=== PATIENT | female | born 1985 | race Caucasian/White ===

== ENCOUNTER 2019-03-26 21:19 | Observation (INO) | payer OTHER, MEDICAID, SELFPAY ==
--- NOTE | 2019-03-26 21:27 | ED.NAVMDI ---
HPI - Nausea/Vomiting/Diarrhea General Chief complaint: Nausea/Vomiting/Diarrhea Stated complaint: vomiting, unable to hold anything down Time Seen by Provider: 03/26/19 21:20 Source: patient and family Mode of arrival: Ambulatory Limitations: no limitations History of Present Illness HPI Narrative: 34-year-old female nonsmoker with noncontributory medical history presents with a chief complaint of severe lower and right lower quadrant pain worsening over the course of the day and now persistent nausea and vomiting. She has become dizzy, weak and lightheaded and complains of a subjective fever. Her pain is worse with motion and improves with rest. Her last menstrual cycle was 3 weeks ago and normal. She denies any dysuria, frequency or urgency. She denies vaginal bleeding or discharge. Her last bowel movement was yesterday and normal. MD complaint: nausea, vomiting and abdominal pain Onset (ago): hour(s) Description of Vomiting: food contents Description of Diarrhea: none Associated Abdominal Pain: Yes Location of pain: RLQ Severity: moderate Quality: cramping and aching Pain Consistency: constant Relieving factors: rest Exacerbating factors: movement Related Data Home Medications Medication Instructions Recorded Confirmed fexofenadine 60 mg tablet 60 mg PO BID 03/14/18 03/14/18 Allergies Allergy/AdvReac Type Severity Reaction Status Date / Time iron Allergy Anaphylaxis Verified 03/27/19 00:00 Review of Systems Constitutional Constitutional: Denies chills, Denies fatigue, Denies fever(s), Denies frequent falls, Denies lethargy and Denies weakness Eyes Eyes: Denies change in vision, Denies eye discharge, Denies irritation and Denies loss of vision ENT Ears, Nose, Mouth, and Throat: Denies change in voice, Denies dizziness, Denies neck pain, Denies sore throat and Denies throat swelling Cardiovascular Cardiovascular: Denies chest pain, Denies irregular heart rhythm, Denies lightheadedness, Denies palpitations, Denies dyspnea, Denies dyspnea on exertion and Denies orthopnea Respiratory Respiratory: Denies cough, Denies dyspnea, Denies dyspnea on exertion and Denies wheezing Gastrointestinal Gastrointestinal: Reports abdominal pain, Denies change in bowel habits, Denies diarrhea, Denies nausea and Reports vomiting Genitourinary Genitourinary: Denies hematuria, Denies flank pain, Denies urinary incontinence and Denies urinary urgency Musculoskeletal Musculoskeletal: Denies back pain, Denies muscle weakness, Denies neck pain, Denies numbness and Denies tingling Integumentary/Breasts Skin/Breast: Denies pruritus, Denies erythema, Denies rash and Denies wounds Neurologic Neurologic: Denies behavioral changes, Denies confusion, Denies dizziness, Denies frequent falls, Denies loss of vision, Denies numbness, Denies tingling and Denies weakness Psychiatric Psychiatric: Denies anxiety, Denies behavioral changes, Denies confusion, Denies depression, Denies homicidal ideation and Denies suicidal ideation Endocrine Endocrine: Denies fatigue, Denies flushing and Denies palpitations Hematologic/Lymphatic Hematologic/Lymphatic: Denies easy bruising Allergic/Immunologic Allergic/Immunologic: Denies urticaria, Denies throat swelling and Denies wheezing Patient History Social History Smoking Status: Current some day smoker Exam Narrative Exam Narrative: GENERAL: [] 34 year old patient appears stated age. Well-nourished, well-developed patient, in mild distress., holding emesis bag HEAD: Atraumatic. Normocephalic. EYES: Pupils equal round and reactive. Extraocular motions intact. No scleral icterus. No injection or drainage. ENT: Nose without bleeding, purulent drainage. Throat without erythema, tonsillar hypertrophy or exudate. Airway patent. NECK: Trachea midline. Non tender CARDIOVASCULAR: Regular rate and rhythm without murmurs, gallops, or rubs. RESPIRATORY: Clear to auscultation. Breath sounds equal bilaterally. No wheezes, rales, or rhonchi. GASTROINTESTINAL: Abdomen soft, tender in the right lower quadrant with localized peritonitis, nondistended. EXTREMITIES: No edema or joint tenderness. BACK: Nontender without deformity or crepitance. No flank tenderness. NEURO: AOx3. SKIN: No rash or erythema of visible areas Initial Vital Signs Initial Vital Signs: Vital Signs Temperature 98.5 F 03/26/19 21:29 Pulse Rate 122 H 03/26/19 21:29 Respiratory Rate 03/26/19 21:29 Blood Pressure 123/61 03/26/19 21:29 Course Orders Ordered: ED Orders 03/26/19 21:30 Complete Blood Count AUTO DIFF Stat Comprehensive Metabolic Panel Stat 03/26/19 22:07 CT abdomen pelvis w con Stat Discontinued Medications Sodium Chloride (Normal Saline 0.9%) 1,000 mls @ 1,000 mls/hr IV BOLUS ONE Stop: 03/26/19 22:26 Last Infusion: 03/26/19 22:50 Dose: 0 mls/hr Documented by: Admin: 03/26/19 21:45 Dose: 1,000 mls/hr Documented by: MAX Ondansetron HCl (Zofran) 4 mg IV NOW ONE Stop: 03/26/19 21:28 Last Admin: 03/26/19 21:45 Dose: 4 mg Documented by: MAX Consultations Consultation #1: Dr. Short happy to accept Vital Signs Vital signs: Vital Signs - 8 hr 03/26/19 21:29 Temperature 98.5 F Pulse Rate 122 H Respiratory Rate 19 Blood Pressure 123/61 MDM - Nausea/Vomiting/Diarrhea Lab Data Result diagrams: 03/26/19 21:30 03/26/19 21:30 Labs: Lab Results 03/26/19 03/26/19 Range/Units 21:30 21:30 WBC 17.5 H (4.5-11.0) X10^3/uL RBC 4.71 (4.0-5.2) X10^6/uL Hgb 12.5 (12.0-16.0) g/dL Hct 37.9 (36-46) % MCV 80.5 (80-100) fL MCH 26.4 (26-34) PG MCHC 32.8 (30-36) % RDW 15.2 H (11.6-14.8) % Plt Count 555 H (150-400) X10^3/uL Neut % (Auto) 78.8 H (50-75) % Lymph % (Auto) 13.2 L (25-40) % [place] % (Auto) 7.4 (3-14) % Eos % (Auto) 0.3 L (2-4) % Baso % (Auto) 0.3 (0-2) % Neut # (Auto) 57548 H (5069-4080) /uL Lymph # (Auto) 2300 (2185-0466) /uL [place] # (Auto) 1300 H (0-900) /uL Eos # (Auto) 100 (0-450) /uL Baso # (Auto) 0 (0-100) /uL Sodium 135 L (137-145) mmol/L Potassium 3.7 (3.4-5.1) mmol/L Chloride 100 (98-107) mmol/L Carbon Dioxide 24 (22-32) mmol/L BUN 13 (7-17) mg/dL Creatinine 0.80 (0.52-1.04) mg/dL Estimated GFR > 60.0 (>60) mL/min BUN/Creatinine Ratio 16.3 (6-22) Glucose 125 H (70-100) mg/dL Calcium 9.0 (8.4-10.2) mg/dL Total Bilirubin 0.6 (0.2-1.3) mg/dL AST 24 (14-36) IU/L ALT 15 (<35) IU/L Alkaline Phosphatase 87 (38-126) U/L Total Protein 8.3 H (6.3-8.2) g/dL Albumin 4.8 (3.5-5.0) g/dL Globulin 3.5 (1.7-4.1) g/dL Albumin/Globulin Ratio 1.4 (1.0-2.8) Point of Care Testing Test Results Negative Urine Dip Bedside Urine Glucose Negative Bedside Urine Bilirubin - Negative Bedside Urine Ketone - Negative Urine Specific [place] 1.005 Bedside Urine Occult Blood - Negative Bedside Urine pH 6.0 Bedside Urine Protein - Negative Bedside Urine Urobilinogen - Negative Bedside Urine Nitrite - Negative Bedside Urine Leukocytes - Negative Esterase Imaging Data CT scan - abdomen: Attestation: I personally reviewed and interpreted this imaging study as follows: Radiologist's impression: appendicitis, not perforated Discharge Plan Departure Patient Disposition: Admitted As Inpatient Clinical Impression: Acute appendicitis Qualifiers: Acute appendicitis type: with localized peritonitis Appendicitis gangrene presence: without gangrene Appendicitis perforation presence: without perforation Appendicitis abscess presence: without abscess Qualified Code(s): K35.30 - Acute appendicitis with localized peritonitis, without perforation or gangrene Admit Date/Time: 03/26/19 23:22 Admit Provider: Carlito Short
[2019-03-26 21:29] VITALS: BP 123/61; PULSE 122; RESP 19; TEMP 36.9; BMI 26.9
[2019-03-26 21:38] LABS: Add Manual Diff / Slide Review NO; Basophils Absolute Auto 0 /uL (0-100); Basophils Percent Auto 0.3 % (0-2); Eosinophils Absolute Auto 100 /uL (0-450); Eosinophils Percent Auto 0.3 % (2-4); Hematocrit 37.9 % (36-46); Hemoglobin 12.5 g/dL (12.0-16.0); Lymphocytes Absolute Auto 2300 /uL (1100-4500); Lymphocytes Percent Auto 13.2 % (25-40); Mean Corpuscular HGB Conc 32.8 % (30-36); Mean Corpuscular Hemoglobin 26.4 PG (26-34); Mean Corpuscular Volume 80.5 fL (80-100); Monocytes Absolute Auto 1300 /uL (0-900); Monocytes Percent Auto 7.4 % (3-14); Neutrophils Absolute Auto 13800 /uL (1500-7000); Neutrophils Percent Auto 78.8 % (50-75); Platelet Count 555 X10^3/uL (150-400); Red Blood Cell Count 4.71 X10^6/uL (4.0-5.2); Red Cell Distribution Width 15.2 % (11.6-14.8); White Blood Cell Count 17.5 X10^3/uL (4.5-11.0)
[2019-03-26] MEDS: SODIUM CHLORIDE 0.9% 1,000 ML 1000 ML IV (21:45)
[2019-03-26] MEDS: ONDANSETRON 4 MG/2 ML INJ IV (21:45)
[2019-03-26 21:50] LABS: Alanine Aminotransferase 15 IU/L (<35); Albumin 4.8 g/dL (3.5-5.0); Albumin Globulin Ratio 1.4 (1.0-2.8); Alkaline Phosphatase 87 U/L (38-126); Aspartate Aminotransferase 24 IU/L (14-36); BUN Creatinine Ratio 16.3 (6-22); Bilirubin Total 0.6 mg/dL (0.2-1.3); Blood Urea Nitrogen 13 mg/dL (7-17); Carbon Dioxide 24 mmol/L (22-32); Chloride 100 mmol/L (98-107); Estimated Glomerular Filt Rate > 60.0 mL/min (>60); Globulin 3.5 g/dL (1.7-4.1); Glucose 125 mg/dL (70-100); HEMOLYSIS < 15 (0-50); Potassium 3.7 mmol/L (3.4-5.1); Sodium 135 mmol/L (137-145); Total Protein 8.3 g/dL (6.3-8.2)
--- NOTE | 2019-03-26 22:07 | DI.CT.S_ITS ---
PROCEDURE: CT ABDOMEN PELVIS W CON INDICATIONS: severe abdominal pain, N/V, leukocytosis TECHNIQUE: After the administration of intravenous contrast, 5 mm thick sections acquired from the diaphragm to the symphysis. 5 mm coronal and sagittal reformats were acquired. For radiation dose reduction, the following was used: automated exposure control, adjustment of mA and/or kV according to patient size. COMPARISON: None. FINDINGS: Image quality: Excellent. ABDOMEN: Lung bases: Lung bases are clear. Heart size is normal. Solid organs: Liver is normal in size and enhancement. Gallbladder is normal. Biliary system is non dilated. Pancreas enhances normally. Spleen is normal in size and enhancement. No adrenal nodules. Kidneys demonstrate normal size and enhancement, without hydronephrosis. Peritoneum and bowel: Appendix is enlarged measuring 10 mm in diameter. There is increased enhancement of the appendiceal wall and periappendiceal stranding. The findings are consistent with acute appendicitis. A small amount of free fluid is present. No rim-enhancing fluid collections to suggest abscess.. Nodes and vessels: No retroperitoneal or mesenteric adenopathy by size criteria. Aorta and inferior vena cava are normal in size. Miscellaneous: No ventral hernias. PELVIS: Genitourinary: Bladder wall thickness is normal. Uterus is normal. There is a 1.7 cm cyst in the right ovary demonstrating peripheral enhancement. Miscellaneous: No inguinal hernias or adenopathy. Bones: No suspicious bony lesions. No vertebral body compression fractures. IMPRESSION: 1. Acute appendicitis. There is a small amount of free fluid. No fluid collections to suggest appendiceal abscess. 2. A 1.7 cm cyst in the right ovary demonstrating peripheral enhancement, probably a corpus luteal cyst. No significant discrepancy with the pre certification specialist radiology preliminary report. Dictated by: Matt Velasquez M.D. on 03/27/2019 at 7:51 Approved by: Matt Velasquez M.D. on 03/27/2019 at 7:59
[2019-03-27] VITALS (18 sets, daily range): BP systolic 100–135; BP diastolic 57–87; PULSE 80–119; RESP 12–22; TEMP 36.3–37.7; O2SAT 96–100; BMI 25.1
--- NOTE | 2019-03-27 | PATH_ITS ---
[facility] Accession Number: [id number] . 01 Material submitted: . appendix - APPENDIX . 02 Diagnosis: Appendix, Appendectomy: Acute appendicitis with serositis. No evidence of neoplasm. MRV 03/30/2019 1402 Local . 02 Electronically signed: . Twan Pollock MD, PhD, Pathologist NPI- [id number] . 01 Gross description: . Specimen is received in a formalin-filled container, labeled appendix, and consists of a 7.4 x 1.5 x 1.3 cm pink-ventura smooth to ragged intact appendix with a moderate amount of adherent mesoappendix. The mesoappendix and appendiceal margins are inked orange. Sectioning reveals a moderate amount of brown-tinged fecal material; however, a fecalith is not grossly identified. The mucosa is diffusely hemorrhagic and focally thickened up to 0.4 cm. The luminal diameter ranges from 0.1 cm up to 0.5 cm. [employer] sections are submitted as follows: A1 - appendix including orange-inked appendiceal margin en face and areas of hemorrhagic mucosa; A2 - distal appendiceal tip, bisected, entirely submitted. ([id number]) /MRV 03/29/2019 0308 Local . 02 Pathologist provided ICD-10: K35.80 . 02 CPT . 332485 Performed at: 01 [facility] [address] [place] [address], [place], [place] [id number] MD Marvin Arellano MD Phone: [phone] Performed at: 02 [facility] [address] [place], [place] [id number] MD Iris Kidd MD Phone: [phone]
[2019-03-27] MEDS: SODIUM CHLORIDE 0.9% 1,000 ML 1000 ML IV (00:22)
[2019-03-27] MEDS: PIPERACILLIN-TAZO 3.375 GM/50 ML FROZ.PIGGY IV ×3 (01:14→13:20)
[2019-03-27] MEDS: SODIUM CHLORIDE 0.9% 1,000 ML 125 ML IV (01:19)
--- NOTE | 2019-03-27 01:26 | PC.NURSE ---
Admitted to room 228 diagnosed with acute appendicitis, denies any nausea upon admit. Abdominal pain is tolerable at this time 07/27. NS bolus completed now, NS @ 125 cc/hr started & Zosyn antibiotic also started. Oriented to her room & instructed to call for assistance if she needed to get up OOB to the BR. Showed how to use her call light, TV & bed controls & call light with in reached. Will cont. POC & monitor.
--- NOTE | 2019-03-27 08:14 | PM.HP.1 ---
History of Present Illness History of Present Illness Chief complaint: vomiting, unable to hold anything down Patient History Family & Social History Social History: household members significant other,children Prior Living Arrangements House Safety & Behavioral: Feels Safe in Current Yes Environment Been Physically Hurt or No Threatened By a Person Suicidal Ideation Description None Suicide Plan Description No Plan Tobacco & Substance use: Tobacco type cannabis/marijuana Smoking Status Current some day smoker alcohol intake former Substance Use Type marijuana Meds Home Medications and Allergies Home Medications Medication Instructions Recorded Confirmed Type fexofenadine 60 mg tablet 60 mg PO BID PRN 03/14/18 03/27/19 History Allergies Allergy/AdvReac Type Severity Reaction Status Date / Time iron Allergy Anaphylaxis Verified 03/27/19 00:00 Review of Systems Review of Systems ROS Unobtainable: All systems reviewed & are unremarkable except as noted in HPI and below Exam Vital Signs (past 8 hours): - 03/27/19 00:18 03/27/19 00:30 03/27/19 05:02 Temperature 99.6 F 99.0 F Pulse Rate 109 H 80 101 H Respiratory Rate 14 16 16 Blood Pressure 102/61 100/62 Blood Pressure [Left Arm] 106/70 Pulse Oximetry 99 99 99 Oxygen Delivery Method Room Air Narrative Exam Narrative: Patient resting in bed with moderate right lower quadrant abdominal pain Ears nose and throat are unremarkable Lungs are clear Heart regular rhythm no murmur Abdomen is soft and upper quadrants with point tenderness in the right lower quadrant positive Rovsing sign guarding in the right lower quadrant no masses Extremities are normal neurologic normal Objective Labs Result Diagrams: 03/26/19 21:30 03/26/19 21:30 Labs: Laboratory Results - last 24 hr 03/26/19 03/26/19 21:30 21:30 WBC 17.5 H RBC 4.71 Hgb 12.5 Hct 37.9 MCV 80.5 MCH 26.4 MCHC 32.8 RDW 15.2 H Plt Count 555 H Neut % (Auto) 78.8 H Lymph % (Auto) 13.2 L [place] % (Auto) 7.4 Eos % (Auto) 0.3 L Baso % (Auto) 0.3 Neut # (Auto) 05441 H Lymph # (Auto) 2300 [place] # (Auto) 1300 H Eos # (Auto) 100 Baso # (Auto) 0 Sodium 135 L Potassium 3.7 Chloride 100 Carbon Dioxide 24 BUN 13 Creatinine 0.80 Estimated GFR > 60.0 BUN/Creatinine Ratio 16.3 Glucose 125 H Calcium 9.0 Total Bilirubin 0.6 AST 24 ALT 15 Alkaline Phosphatase 87 Total Protein 8.3 H Albumin 4.8 Globulin 3.5 Albumin/Globulin Ratio 1.4 Assessment & Plan Assessment & Plan narrative: Patient is CT scan in the ER showing uncomplicated acute [place]icitis [place] [id number] she has received several doses of intravenous Zosyn she will have an open appendectomy this afternoon patient understands and agrees to the plan and has no unanswered questions Quality VTE Deep Vein Thrombosis/Pulmonary Embolism Present on Admission: No
[2019-03-27] MEDS: SODIUM CHLORIDE 0.45% 1,000 ML 100 ML IV ×2 (08:44→22:25)
--- NOTE | 2019-03-27 09:37 | CM.IDA ---
Discharge Planning/Care Management CM Discharge Assessment Start: 03/27/19 09:27 Freq: Status: Active Protocol: Document 03/27/19 09:27 MAYLIN (Rec: 03/27/19 09:37 MYALIN [id number]) Discharge Planning Assessment Assigned Supervisor [employer] TRISTIN Hatch DPOA/Assigned Designee Name Chadwick Cabrera, life partner Contact Information [phone] Advance Directives? No Advance Directives on File No History Provided By Patient Prior Living Arrangements House Household Members significant other,children Type of transporation used prior to Drives own vehicle admit Willing to Return to Facility? No Independent with ADL's Yes Is patient alert and oriented? Yes Barriers to Discharge No Comment Pt is scheduled for open appendectomy today w/Dr Short. Pt will likely return home w/family, no barriers, pending post op course is uncomplicated. This DEPUTY CHIEF SHERIFF will follow for any DC needs or concerns that arise, likely no needs. Discharge Plan Home Transportation Arrangement Family Referrals Initiated None needed Additional Comment Pending surgery, post op course and further assessment of DC needs Review Status In Process
--- NOTE | 2019-03-27 14:39 | PC.NURSE ---
Pt to OR for surgery via bed with OR personnel
--- NOTE | 2019-03-27 14:45 | SUR.OPER ---
Supine on padded OR bed, head on pillow, arms secured on padded arm boards at <90 degrees abduction, legs uncrossed, safety belt at thigh, tape over blanket over lower legs.
[2019-03-27] MEDS: LACTATED RINGERS 1,000 ML 42 ML IV ×2 (15:03→16:00)
[2019-03-27] MEDS: BUPIVACAINE 0.5% W/ EPI (PF) VIAL 30 ML INJ (15:18)
[2019-03-27] MEDS: SODIUM CHLORIDE IRRIG SOLUTION 1,000 ML, BACITRACIN 50,000 UNIT IRR (15:18)
[2019-03-27] MEDS: HYDROMORPHONE 2 MG INJ IV ×2 (15:50→16:05)
--- NOTE | 2019-03-27 15:50 | PM.OP.1 ---
Operative Date/Time/Diagnoses Date of procedure: 03/27/19 Time of procedure: 15:50 Pre-op diagnosis: Acute uncomplicated appendicitis Post-op diagnosis: same Procedure & Clinicians Procedure: Appendectomy Same procedure as scheduled: Yes Indications: Acute appendicitis Surgeon: Carlito Short Click Yes if Unassisted: Yes Anesthesia Type: General Operative Notes Findings: Acute uncomplicated appendicitis Closure Type: primary Estimated Blood Loss (mL): 50 Blood products transfused: none Procedure in detail: The patient was properly identified during surgical pause prepped and draped in a sterile fashion exposure of the right lower quadrant of the abdomen under general endotracheal anesthesia. A standard Gaston-George incision was made over McBurney's point the oblique muscles split in a grid iron fashion so as to expose the peritoneum. The peritoneum was elevated and entered so as to avoid injury to the underlying structures. The cecum was rotated into the wound the appendix was elevated it was acutely inflamed and covered with fibrin but was not ruptured. There was no pelvic abscess. The mesoappendix was divided between clamps the vessels ligated with 2 0 Vicryl for excellent hemostasis. The base of the appendix was closed with a TA 30? stapler and the appendix was excised over the staple line. The appendix was cultured. The cecum returned to its anatomic position there was no bleeding from the staple line which was intact. The pelvis was irrigated with a L of bacitracin saline aspirated dry there was no purulence no bleeding. Peritoneum closed with running 2 0 Vicryl. The fascia was closed with 1. PDS. The subcu irrigated with bacitracin saline aspirated dry there was no bleeding the skin was stapled. Local anesthesia was administered. Procedures very well tolerated. Complications: none Post-operative Condition: stable Disposition: PACU
[2019-03-27] MEDS: fentaNYL 100 MCG/2 ML INJ IV ×2 (15:55→16:00)
[2019-03-27] MEDS: SIMETHICONE 80 MG TABLET PO ×2 (17:56→20:34)
[2019-03-27] MEDS: OXYCODONE/ACETAMINOPHEN 5/325 TABLET 1 TAB PO (19:19)
--- NOTE | 2019-03-27 22:14 | PC.NURSE ---
1640: Pt to acute care from PACU. Drowsy, pain 5-6/10 with coughing. Falls asleep quickly. RA 97%. Abd soft/tender, BT hypoactive, flatus-. Denies nausea. Dressing, 4x4 w/tegaderm to RLQ c/d/i. Full liquid diet ordered. Oriented to room/call light. Fluids started. Bed alarm on. 1919: Pain 6/10 with ambulation/cough. Medicated w/percocet. Up to bathroom, voided 1000ml. Family at bedside. 2029: Reports pain better 2114: Up to bathroom, having diarrhea.
[2019-03-28] MEDS: OXYCODONE/ACETAMINOPHEN 5/325 TABLET 1 TAB PO ×3 (01:02→11:51)
[2019-03-28 03:34] VITALS: BP 118/70; PULSE 86; RESP 18; TEMP 37.1; O2SAT 99
[2019-03-28 07:40] VITALS: BP 107/74; PULSE 87; RESP 16; TEMP 36.6; O2SAT 100
[2019-03-28] MEDS: SIMETHICONE 80 MG TABLET PO (07:56)
--- NOTE | 2019-03-28 07:57 | PC.NURSE ---
During bedside report, I saw that patient had IV pump turned off. I had checked her line and repositioned washcloth over her left AC. To the best of my recollection the pump was actively working at that time. Restarted IVF, IV flushed by day nurse, and remains patent.
--- NOTE | 2019-03-28 08:05 | PC.NURSE ---
Addendum entered by Ara Rasheed R.N. 03/28/19 15:19: Discharge: IV dc'd intact. Reviewed all d/c instructions thoroughly with patient. No scripts, she is to take Tylenol and Ibuprofen for pain, but was advised to call MD or go to clinic if the pain turns out not to be managed well enough. She knows that she needs to follow up with her PCP for removal of perico and will schedule appt herself. Verbalized understanding of d/c info and stated no further questions. All personal belongings sent with patient at discharge. Wheeled out to private vehicle accompanied by nursing staff. Original Note: Shift summary: Alert and oriented X3. Dressing to abd C/D/I. Abd soft, tender. Medicated with 1 tab Percocet for 6/10 abd pain. BT+, denies flatus. Denies N/V and states she is looking forward to breakfast. Lungs CTA. HRR. IVF per orders, site in L AC WNL. Able to make needs known and calls appropriately. Light and belongings within reach, bed alarm on.
--- NOTE | 2019-03-28 10:23 | CM.DPC ---
DCP Cont: Checked in with patient, and year old son in room. Patient anxious to go home today. She has not yet seen the surgeon yet. Explained priority boarding pass to her, she can get at main nurses station. Patient feeling better. P: DCP to continue to follow. She should be able to go home when cleared by surgeon. Jumana Huang RN/[employer]
--- NOTE | 2019-03-28 10:53 | PM.DS.1 ---
History of Present Illness History of Present Illness Chief complaint: vomiting, unable to hold anything down Discharge Providers Provider Date of admission: 03/26/19 23:22 Discharge Date: 03/28/19 Primary care physician: Francisco Chatman MD Discharge provider: Carlito Short MD Summary Hospital Course Discharge Diagnosis: Acute uncomplicated appendicitis Hospital Course: Patient was admitted through the emergency department with acute uncomplicated appendicitis and underwent an appendectomy. She was given antibiotics prior to surgery. At operation she was found to have uncomplicated appendicitis with no pelvic abscess or evidence of perforation. The morning following surgery she is feeling very well eating a regular diet having bowel movements. She has minimal discomfort. Dressing is dry and intact with no drainage. She is afebrile. She is discharged home. She will follow up further local physician for removal of perico in 1 week. She has been instructed on wound care to take normal showers and change the dressing as needed. No medications are given at discharge. She will take ibuprofen for any wound discomfort. She has no unanswered questions. Status at Discharge Cognitive/behavioral status at discharge: oriented Functional status at discharge: independent ambulation Overall status at discharge: patient is back to baseline Time Spent with Patient Time spent: Less than 30 minutes Exam Vital Signs (past 8 hours): - 03/28/19 03:34 03/28/19 07:40 Temperature 98.7 F 98 F Pulse Rate 86 87 Respiratory Rate 18 16 Blood Pressure 118/70 107/74 Pulse Oximetry 99 100 Oxygen Delivery Method Room Air Oxygen Flow Rate 0 Objective Labs Result Diagrams: 03/26/19 21:30 03/26/19 21:30 Discharge Plan Discharge Plan Patient Disposition: Home Discharge Med Rec/Prescriptions Prescriptions: Continued fexofenadine [Prabha Allergy] 60 mg tablet 60 mg PO BID PRN (Reason: Seasonal allergy) RF: 0 Follow up/Referrals: Francisco Chatman MD [Primary Care Provider] - Provider Discharge Instructions Diet: Diet as Tolerated Activity: no heavy lifting over 30 pounds for 6 weeks Skin/Wound/Dressing Care Skin care: bathe normally Report to your healthcare provider any signs of infection, such as:: chills, fever, night sweats, increased pain, unusual drainage and unusual redness Dressing: change as needed, may leave open in 2 days Other wound treatment: have perico removed in 1 week at local doctor Discharge Data Primary Care Provider: Francisco Chatman VTE Deep Vein Thrombosis/Pulmonary Embolism Present on Admission: No
== END 2019-03-28 15:22 | disposition home or self-care (01) ==
LOC: ED 23:20 → AC 23:48
PROVIDERS: Admitting Provider Surgery; Emergency Provider Emergency Medicine; Family Provider Obstetrics & Gynecology; PCP Family Medicine; Visit Provider Surgery
PROC: (CPT 44950; principal; 2019-03-27 15:15)
DX: K35.80 Unspecified acute appendicitis (principal); R11.2 Nausea with vomiting, unspecified; R19.7 Diarrhea, unspecified; F17.210 Nicotine dependence, cigarettes, uncomplicated
CPT/HCPCS: 44970; 36415; 44950; 74177; 80053; 81003; 81025; 85025; 87070; 87075; 87077; 87147; 87186; 87205; 99218; 99282; G0378; J1100; J1170; J1885; J2250; J2405; J2543; J2704; J3010; J7050

== ENCOUNTER → 2025-03-31 12:21 | Outpatient (CLI) | payer OTHER, SELFPAY ==
[2019-03-27 00:50] VITALS: BMI 25.1
[2025-03-31 20:23] LABS: Urine N gonorrhoeae NOT DETECTED
[2025-03-31 20:32] LABS: Urine Chlamydia NOT DETECTED
== END ==
PROVIDERS: Family Provider Obstetrics & Gynecology; PCP Physician Assistant Medical; Visit Provider Physician Assistant Medical
DX: Z13.1 Encounter for screening for diabetes mellitus (principal); Z13.29 Encounter for screening for other suspected endocrine disorder; Z13.0 Encounter for screening for diseases of the blood and blood-forming organs and certain disorders involving the immune mechanism; Z13.6 Encounter for screening for cardiovascular disorders; T78.40XA Allergy, unspecified, initial encounter; T78.3XXA Angioneurotic edema, initial encounter; R09.A2 Foreign body sensation, throat; R05.9 Cough, unspecified
CPT/HCPCS: 87491; 87591

== ENCOUNTER → 2025-04-13 13:05 | Outpatient (CLI) | payer OTHER, SELFPAY ==
[2019-03-27 00:50] VITALS: BMI 25.1
--- NOTE | 2025-04-13 13:07 | DI.US.S_ITS ---
PROCEDURE: US SOFT TISSUE HEAD AND NECK INDICATIONS: ANTERIOR NECK PAIN LEFT > RIGHT TECHNIQUE: Real-time scanning was performed of the neck region of interest, with image documentation. COMPARISON: None. FINDINGS: The thyroid appears hypervascular, with homogeneous echogenicity. Cervical chain lymph nodes are present, measuring within normal limits. These maintain a normal reniform shape and fatty hilum. IMPRESSION: Slightly vascular thyroid, which may indicate thyroiditis. Correlate with thyroid panel. Dictated by: Shar Caldwell M.D. on 04/13/2025 at 16:23 Approved by: Shar Caldwell M.D. on 04/13/2025 at 16:24
== END ==
LOC: US 13:06
PROVIDERS: Family Provider Obstetrics & Gynecology; PCP Physician Assistant Medical; Referring Provider Family Medicine; Visit Provider Family Medicine
DX: M54.2 Cervicalgia (principal)
CPT/HCPCS: 76536

== ENCOUNTER → 2025-04-20 08:55 | Outpatient (CLI) | payer OTHER, SELFPAY ==
[2019-03-27 00:50] VITALS: BMI 25.1
[2025-04-20 18:58] LABS: Add Manual Diff / Slide Review NO; Hematocrit 34.5 % (36-46); Hemoglobin 11.2 g/dL (12.0-16.0); Lymphocytes Absolute Auto 1700 /uL (1100-4500); Mean Corpuscular HGB Conc 32.3 % (30-36); Mean Corpuscular Hemoglobin 26.1 PG (26-34); Mean Corpuscular Volume 80.8 fL (80-100); Platelet Count 454 X10^3/uL (150-400)
[2025-04-20 19:04] LABS: Alanine Aminotransferase 29 IU/L (<35); Albumin 4.4 g/dL (3.5-5.0); Albumin Globulin Ratio 1.4 (1.0-2.8); Alkaline Phosphatase 79 U/L (38-126); Blood Urea Nitrogen 11 mg/dL (7-17); Calcium 8.9 mg/dL (8.4-10.2); Carbon Dioxide 25 mmol/L (22-32); Chloride 106 mmol/L (98-107); Cholesterol 214 mg/dL (140-199); Estimated Glomerular Filt Rate > 60 mL/min (>60); Globulin 3.1 g/dL (1.7-4.1); Glucose 96 mg/dL (70-99); HDL Cholesterol 91 mg/dL (40-60); HEMOLYSIS < 15 (0-50); Potassium 4.3 mmol/L (3.4-5.1); Sodium 137 mmol/L (137-145); Total Protein 7.5 g/dL (6.3-8.2); Triglycerides 65 mg/dL (35-150)
[2025-04-20 19:05] LABS: Hemoglobin A1C% w Est Avg Glu 5.3 % (4.0-6.0)
[2025-04-20 19:33] LABS: TSH w/ Reflex to FT4 2.56 uIU/mL (0.47-4.68)
[2025-04-20 20:46] LABS: HIV 1 & 2 Ab/Ag 4th Gen Combo NEGATIVE (NEGATIVE); Hep C Virus Ab w/Reflex Quant NEGATIVE s/c (NEGATIVE)
== END ==
PROVIDERS: PCP Physician Assistant Medical; Visit Provider Physician Assistant Medical
DX: Z13.0 Encounter for screening for diseases of the blood and blood-forming organs and certain disorders involving the immune mechanism (principal); Z13.6 Encounter for screening for cardiovascular disorders; Z13.1 Encounter for screening for diabetes mellitus; Z13.29 Encounter for screening for other suspected endocrine disorder; R09.A2 Foreign body sensation, throat; R05.9 Cough, unspecified; T78.3XXA Angioneurotic edema, initial encounter; T78.40XA Allergy, unspecified, initial encounter; Z20.2 Contact with and (suspected) exposure to infections with a predominantly sexual mode of transmission
CPT/HCPCS: 80053; 80061; 82785; 83036; 84443; 85025; 86003; 86592; 86803; 87389; 87529

== ENCOUNTER → 2025-04-27 11:04 | Outpatient (CLI) | payer OTHER, SELFPAY ==
[2019-03-27 00:50] VITALS: BMI 25.1
[2025-04-27 19:44] LABS: Free T3, Triiodothyronine Free 4.62 pg/mL (2.77-5.27)
[2025-04-27 19:58] LABS: TSH w/ Reflex to FT4 1.55 uIU/mL (0.47-4.68)
[2025-04-28 17:09] LABS: Anti Thyroglobulin Antibody <1.0 IU/mL (0.0-0.9)
== END ==
PROVIDERS: PCP Physician Assistant Medical; Referring Provider Physician Assistant Medical; Visit Provider Physician Assistant Medical
DX: R93.89 Abnormal findings on diagnostic imaging of other specified body structures (principal); M54.2 Cervicalgia; T78.3XXA Angioneurotic edema, initial encounter
CPT/HCPCS: 84443; 84481; 85651; 86140; 86376; 86800